=== PATIENT | female | born 1945 | race Caucasian/White ===

== ENCOUNTER 2021-06-01 09:37 | Outpatient (CLI) | payer MEDICARE, BC | END 2021-06-01 09:38 | disposition home or self-care (01) | LOC: CSHMAMMO 09:37 | PROVIDERS: ATTEND Internal Medicine | DX: Z13.820 Encounter for screening for osteoporosis (principal); Z78.0 Asymptomatic menopausal state; M85.851 Other specified disorders of bone density and structure, right thigh; M85.852 Other specified disorders of bone density and structure, left thigh | CPT/HCPCS: 77080 ==

== ENCOUNTER 2021-10-17 08:20 | Outpatient (CLI) | payer MEDICARE, BC | END 2021-10-17 08:21 | disposition home or self-care (01) | LOC: CSHMAMMO 08:20 | PROVIDERS: ATTEND Internal Medicine | DX: Z12.31 Encounter for screening mammogram for malignant neoplasm of breast (principal); Z80.3 Family history of malignant neoplasm of breast | CPT/HCPCS: 77063; 77067 ==

== ENCOUNTER 2022-04-05 13:49 | Outpatient (CLI) | payer MEDICARE, BC | END 2022-04-05 13:50 | disposition home or self-care (01) | LOC: CSHCT 13:49 | PROVIDERS: ATTEND Internal Medicine | DX: R41.3 Other amnesia (principal); R51.9 Headache, unspecified; R19.00 Intra-abdominal and pelvic swelling, mass and lump, unspecified site; G31.9 Degenerative disease of nervous system, unspecified; K59.00 Constipation, unspecified; N20.0 Calculus of kidney; N28.9 Disorder of kidney and ureter, unspecified; N94.89 Other specified conditions associated with female genital organs and menstrual cycle | CPT/HCPCS: 70551; 74177; 82565 ==

== ENCOUNTER 2022-10-03 14:25 | Outpatient (CLI) | payer MEDICARE, BC | END 2022-10-03 14:26 | disposition home or self-care (01) | LOC: CSHMRI 14:25 | PROVIDERS: ATTEND Family Medicine | DX: M47.816 Spondylosis without myelopathy or radiculopathy, lumbar region (principal); M51.9 Unspecified thoracic, thoracolumbar and lumbosacral intervertebral disc disorder; M79.18 Myalgia, other site; M48.8X6 Other specified spondylopathies, lumbar region | CPT/HCPCS: 72100; 72148 ==

== ENCOUNTER 2022-12-15 10:08 | Outpatient (CLI) | payer MEDICARE, BC | END 2022-12-15 10:09 | disposition home or self-care (01) | LOC: CSHMAMMO 10:08 | PROVIDERS: ATTEND Internal Medicine | DX: Z12.31 Encounter for screening mammogram for malignant neoplasm of breast (principal); Z80.3 Family history of malignant neoplasm of breast | CPT/HCPCS: 77063; 77067 ==

== ENCOUNTER 2023-07-25 12:37 | Outpatient (CLI) | payer MEDICARE, BC | END 2023-07-25 12:38 | disposition home or self-care (01) | LOC: CSHMRI 12:37 | PROVIDERS: ATTEND Internal Medicine | DX: M54.6 Pain in thoracic spine (principal); R90.89 Other abnormal findings on diagnostic imaging of central nervous system; M47.814 Spondylosis without myelopathy or radiculopathy, thoracic region; M51.24 Other intervertebral disc displacement, thoracic region | CPT/HCPCS: 72146 ==

== ENCOUNTER 2023-07-27 12:24 | Outpatient (CLI) | payer MEDICARE, BC | END 2023-07-27 12:25 | disposition home or self-care (01) | LOC: CSHULT 12:24 | PROVIDERS: ATTEND Internal Medicine | DX: N83.202 Unspecified ovarian cyst, left side (principal); R93.89 Abnormal findings on diagnostic imaging of other specified body structures | CPT/HCPCS: 76856 ==

== ENCOUNTER 2024-10-02 14:18 | Outpatient (CLI) | payer MEDICARE | END 2024-10-02 14:19 | disposition home or self-care (01) | LOC: CSHRAD 14:18 | PROVIDERS: ATTEND Internal Medicine | DX: R07.89 Other chest pain (principal); S22.22XD Fracture of body of sternum, subsequent encounter for fracture with routine healing | CPT/HCPCS: 71120 ==

== ENCOUNTER 2024-10-15 11:15 | Outpatient (CLI) | payer MEDICARE | END 2024-10-15 11:16 | disposition home or self-care (01) | LOC: CSHCT 11:15 | PROVIDERS: ATTEND Internal Medicine | DX: S22.20XD Unspecified fracture of sternum, subsequent encounter for fracture with routine healing (principal); S22.20XK Unspecified fracture of sternum, subsequent encounter for fracture with nonunion | CPT/HCPCS: 71250 ==

== ENCOUNTER 2025-09-15 12:13 | Outpatient (CLI) | payer MEDICARE | END 2025-09-15 12:14 | disposition home or self-care (01) | LOC: CSHRAD 12:13 | PROVIDERS: ATTEND Family Medicine | DX: M25.551 Pain in right hip (principal) ==